=== PATIENT | male | born 1985 | race Caucasian/White ===

== ENCOUNTER 2022-11-17 08:08 | Outpatient (CLI) | payer OTHER, SELFPAY | END 2022-11-17 08:09 | disposition home or self-care (01) | LOC: NFLDREF 11-18 12:14 | PROVIDERS: PCP Family Medicine; Visit Provider Family Medicine | DX: Z00.00 Encounter for general adult medical examination without abnormal findings (principal); I10 Essential (primary) hypertension; Z13.6 Encounter for screening for cardiovascular disorders | CPT/HCPCS: 80053; 80061 ==